=== PATIENT | male | born 1965 | race Caucasian/White ===

== ENCOUNTER → 2023-09-15 06:21 | Day surgery (SDC) | payer OTHER, SELFPAY | LOC: GI 06:21 | PROVIDERS: ATTENDING PHYSICIAN Internal Medicine Gastroenterology | DX: Z12.11 Encounter for screening for malignant neoplasm of colon (principal); K57.30 Diverticulosis of large intestine without perforation or abscess without bleeding; K64.8 Other hemorrhoids; Z86.010 Personal history of colon polyps | CPT/HCPCS: G0105 ==

== ENCOUNTER 2023-09-15 20:47 | Emergency (ER) | payer OTHER, SELFPAY ==
[2023-09-15 20:52] VITALS: BP 184/124; BMI 33.9
[2023-09-15 21:16] LABS: % Basophils 0.9 % (0-2); % Eosinophils 2.1 % (0-6); % Immature Granulocytes 0.2 % (0-0.5); % Lymphocytes 36.8 % (20.5-51.1); % Monocytes 11.2 % (1.7-9.3); % Neutrophils 48.8 % (42.2-75.2); Absolute Basophils 0.1 10^3/uL (0-0.2); Absolute Eosinophils 0.2 10^3/uL (0-0.7); Absolute Lymphocytes 3.4 10^3/uL (1.2-3.4); Absolute Neutrophils 4.6 10^3/uL (1.4-6.5); Hematocrit 41.3 % (39.0-52.0); Hemoglobin 15.3 g/dL (13.0-18.0); Mean Corpuscular Hgb 31.2 pg (27.0-31.0); Mean Corpuscular Volume 84.1 fL (80.0-94.0); Mean Platelet Volume 9.6 fL (7.4-10.4); Nucleated Red Blood Cells % 0 % (-); Platelet Count 243 10^3/uL (130-400); Red Blood Cell Count 4.91 10^6/uL (4.70-6.10); Red Cell Dist. Width 12.7 % (11.5-14.5); White Blood Cell Count 9.3 10^3/uL (4.8-10.8)
[2023-09-15 21:34] LABS: ALT (SGPT) 25 U/L (0-50); AST (SGOT) 28 U/L (17-59); Albumin 4.5 g/dl (3.5-5.0); Alkaline Phosphatase 71 U/L (38-126); Blood Urea Nitrogen 17 mg/dl (9-20); Calcium 9.6 mg/dl (8.4-10.2); Carbon Dioxide 26 mmol/L (22-30); Chloride 99 mmol/L (98-107); Estimated Creatinine Clearance 88 ml/min; Glucose 117 mg/dl (70-99); Potassium 3.7 mmol/L (3.5-5.1); Sodium 136 mmol/L (135-145); Total Bilirubin 2.1 mg/dl (0.2-1.3); Total Protein 7.9 g/dl (6.3-8.2); eGFR > 60.00
[2023-09-15 21:41] LABS: Troponin I < 0.012 ng/ml
--- NOTE | 2023-09-15 23:19 | ED.GENMED ---
History of Present Illness
<GERTRUDE Harris - Last Filed: 09/16/23 05:58>
General
Chief Complaint: Headache
Source: patient and family
Exam Limitations: none
Time Seen by Provider: 09/15/23 23:04
Travel History
Have you had any contact with someone who has COVID-19?: No
Do you have any symptoms of coronavirus? Fever > 100 degrees, chills, cough, shortness of breath, sore throat, loss of taste or smell, muscle aches, or headache?: No
History of Present Illness
History of Present Illness:
This is a 57 YO M with a PMH of HTN presenting here today for sharp head pain/pressure since 7:30 p.m. tonight. Pt reports the pain is sharp with radiation from the top left scalp down into the left forehead and left ear.
Denies eye pain, loss of vision, or visual changes. Pt reports this has never happened before. Pt had a colonoscopy today and reports it was normal. He mentioned he vomited last night after taking the medication for his colonoscopy. He rates the
head pressure as a 3-4/10. He states the pain has improved since being here. Denies chest pain, SOB, fever or chills, or new rashes.
Pt reports he was not vaccinated for shingles.
Past History
<GERTRUDE Harris - Last Filed: 09/16/23 05:58>
Past History
ED Past Medical History: HTN
ED Past Surgical History: Cardiac and Urological
Social History
Tobacco: Non-smoker
Personal:
Living: with family
Employment: Employed
Review of Systems
<GERTRUDE Harris - Last Filed: 09/16/23 05:58>
Review of Systems
Constitutional: Reports no symptoms
Respiratory: Reports no symptoms
Cardiac: Reports no symptoms
ABD/GI: Reports no symptoms
: Reports no symptoms
Musculoskeletal: Reports joint pain
Skin: Reports no symptoms
Neurological: Reports headache
Endocrine: Reports no symptoms
Hematologic/Lymphatic: Reports no symptoms
Psychiatric: Reports no symptoms
Phy Exam
<Maliha Wilkins [facility] - Last Filed: 09/16/23 05:58>
Physical Exam
Physical Exam:
Left scalp pain, radiating into left forehead
Normal S1 and S2, Pupils are equally R+R to light, Lungs clear to auscultation B/L
Pulmonary Exam
Pulmonary Exam: lungs clear, no respiratory distress, no rales, no crackles, no rhonchi, no wheezing and no cough
Psychiatric Exam
Psychiatric Exam: normal mood/affect
Course
<Maliha Wilkins [facility] - Last Filed: 09/16/23 05:58>
Orders/Labs/Results
Orders:
Orders
09/15/23 20:57
Electrocardiogram (*1) Urgent
Reason for Study: Chest Pain
CT Head W/o Iv Contrast Urgent
Comment:
Reason For Exam: pain
EKG- Treatment ONCE
09/15/23 21:11
Complete Blood Count/With Diff Urgent
Comprehensive Metabolic Panel Urgent
Troponin I Urgent
Abnormal Lab Results
09/15/23
21:11
MCH 31.2 H pg
(27.0-31.0)
Absolute Monos (auto) 1.0 H 10^3/uL
(0.1-0.6)
Monocytes % 11.2 H %
(1.7-9.3)
Glucose 117 H mg/dl
(70-99)
Total Bilirubin 2.1 H mg/dl
(0.2-1.3)
09/15/23 21:11
09/15/23 21:11
Vital Signs
Initial and Last Documented VS:
Initial Vital Signs
Temp Pulse Resp BP Pulse Ox
98.4 F 99 18 184/124 98
09/15/23 20:52 09/15/23 20:52 09/15/23 20:52 09/15/23 20:52 09/15/23 20:52
Last Documented Vital Signs
Temp Pulse Resp BP Pulse Ox
98.4 F 99 18 167/98 98
09/15/23 20:52 09/15/23 20:52 09/15/23 20:52 09/15/23 23:39 09/15/23 20:52
<Lizbeth Luis DO - Last Filed: 09/16/23 00:00>
Orders/Labs/Results
Orders:
Orders
09/15/23 20:57
Electrocardiogram (*1) Urgent
Reason for Study: Chest Pain
CT Head W/o Iv Contrast Urgent
Comment:
Reason For Exam: pain
EKG- Treatment ONCE
09/15/23 21:11
Complete Blood Count/With Diff Urgent
Comprehensive Metabolic Panel Urgent
Troponin I Urgent
Abnormal Lab Results
09/15/23
21:11
MCH 31.2 H pg
(27.0-31.0)
Absolute Monos (auto) 1.0 H 10^3/uL
(0.1-0.6)
Monocytes % 11.2 H %
(1.7-9.3)
Glucose 117 H mg/dl
(70-99)
Total Bilirubin 2.1 H mg/dl
(0.2-1.3)
09/15/23 21:11
09/15/23 21:11
Vital Signs
Initial and Last Documented VS:
Initial Vital Signs
Temp Pulse Resp BP Pulse Ox
98.4 F 99 18 184/124 98
09/15/23 20:52 09/15/23 20:52 09/15/23 20:52 09/15/23 20:52 09/15/23 20:52
Last Documented Vital Signs
Temp Pulse Resp BP Pulse Ox
98.4 F 99 18 167/98 98
09/15/23 20:52 09/15/23 20:52 09/15/23 20:52 09/15/23 23:39 09/15/23 20:52
<GERTRUDE Harris - Last Filed: 09/16/23 05:58>
MDM/Problems Addressed
Differential Diagnosis Includes:
Giant cell arteritis, Shingles, Migraine
MDM/Problems Addressed:
Scalp, left forehead pressure since x 6 hours
Chronic conditions affecting care: HTN
<GERTRUDE Harris - Last Filed: 09/16/23 05:58>
*Critical Care Note
Total Time (30-74mins, 75-104mins- exclusive of procedures): Not Applicable
<Lizbeth Luis DO - Last Filed: 09/16/23 00:00>
*Radiology
Radiology exam reviewed: radiology read reviewed
*Pulse Oximetry
Patient hypoxic: no
*EKG
Interpreted by ED Provider?: Yes
Comparison EKG: no changes
Rate: normal
Rhythm: sinus
[place]: normal axis
Interval: normal interval
QRS Pattern: normal QRS
Ischemia: non-specific ST changes
*[employer] Interpretation
Rate: normal
Interpretation: normal
Rhythm: sinus
ED Attending Note
<GERTRUDE Harris - Last Filed: 09/16/23 05:58>
-
Portions of this chart may have been created with voice recognition software.� Occasional wrong word or��sound alike� substitutions may have occurred due to the inherent limitations of voice recognition software.
<Lizbeth Luis, DO - Last Filed: 09/16/23 00:00>
ED Attending Note
Patient seen and examined by attending physician: Yes
I performed the substantive portion of visit, reviewed & personally made and approve the management plan that is documented in note by myself or RASHMI.: Yes
I performed a history and physical exam of patient and discussed management with resident, I reviewed resident's note and agree with documented findings and plan of care.: Yes
ED Attending Note:
This is a 57-year-old gentleman with history of hypertension, chronically maintained on lisinopril who underwent routine repeat screening colonoscopy this morning and admits to neglecting to take his lisinopril this morning. He does admit to
moderately rough evening last night as well as poor sleep last night related to colonoscopy prep.
Reports undergoing unremarkable colonoscopy showing diverticulosis but no polyps.
This evening he drank a THC containing seltzer and shortly after this developed abrupt onset of sharp, stabbing left frontotemporal head pain accompanied with tingling sensation left frontotemporal region that began around 7:30 PM. No associated
symptoms, he denies weakness nor numbness, no neck pain or chest pain, no palpitations, no dizziness nor lightheadedness, no nausea nor vomiting, no vision difficulty. Intermittent sharp stabbing left frontotemporal head discomfort persisted for
perhaps 2 hours but then resolved. He did not take anything for discomfort.
No history of similar episodes in the past.
GENERAL: Alert , in no apparent distress
EYE: pupils equal and reactive. Extraocular muscles intact. Anicteric
NECK: Supple, nontender, no meningismus, no significant adenopathy.
ENT: posterior pharynx is clear, oral mucosa is moist. TM clear b/l, nares patent.
CARDIAC: Regular rate and rhythm. no murmur.
LUNGS: Clear breath sounds bilaterally, no acute respiratory distress, no wheezes/rales/rhonchi
ABDOMEN: Soft, nondistended, without focal tenderness, no r/g, no cvat. normoactive BS.
NEUROLOGICAL: Alert and oriented x3, no focal neuro deficits. Gait is whitehead and steady.
SKIN: Warm and dry, normal color, skin intact. No rash.
MUSCULOSKELETAL: No C/C/E. peripheral pulses are full and equal b/l. No palpable tenderness.
PSYCH: Normal and appropriate interaction.
History and exam most suggestive of tension type headache, other consideration is migraine headache. With no other associated symptoms, acute intracranial event/CVA, ruptured aneurysm etc. are less likely.
With resolution of headache, temporal arteritis, early herpes zoster are unlikely as well.
Moderately elevated blood pressure initially 184/124 has improved to 160/90.
Headache has resolved since arrival to the ED without intervention.
CT of the head is unremarkable.
Labs are unremarkable as well.
Recommend he resume his regular dose of lisinopril on a daily basis.
Discussed importance of remaining well-hydrated on a daily basis.
Prompt follow-up with PCP for recheck.
Return precautions discussed.
Discharge Plan
Departure
Patient Disposition: Home (Routine Discharge)
Date of Disposition: 09/15/23
Time of Disposition: 23:44
Patient with high blood pressure during this ER visit?: No
Condition: Good
Discharge Problem:
Acute tension-type headache
Instructions: Headache, Adult (DC)
Prescriptions:
No Action
lisinopril 20 MG tablet
20 mg PO DAILY
[id number] [Daily Multivitamin] 1 EACH capsule
1 ea PO DAILY
Referrals:
UNKNOWN - PT DOES,NOT KNOW [Unknown Provider] -
Activity Restrictions/Additional Instructions:
Resume your daily antihypertensive/lisinopril.
Stay well-hydrated on a daily basis at least over the next several days.
If headache returns you may take Tylenol versus ibuprofen for headache. If this is ineffective or if headache persists, becomes severe or is accompanied with vomiting, fever, weakness or any other worrisome symptom, prompt return to the ER for
further evaluation.
Follow-up with your primary care physician for BP recheck.
Interventions
Interventions:
*Risk Screen - Suicide Last Done: 09/15/23 20:52
*General Assessment Last Done: 09/15/23 23:52
*Neglect/Abuse Screening Last Done: 09/15/23 20:52
ED- Fall Risk Assessment Last Done: 09/15/23 20:52
*ED COVID-19 Vaccine History Last Done: 09/15/23 23:52
*Nursing Disposition Last Done: 09/15/23 23:52
ED- Neurological Assessment Last Done: 09/15/23 23:35
Discharge Date and Time
Discharge Date/Time: 09/15/23 23:52
Print Language: UKRAINIAN
[2023-09-15 23:39] VITALS: BP 167/98
== END 2023-09-15 23:52 | disposition home or self-care (01) ==
LOC: EMR 20:47
PROVIDERS: Emergency Medicine; EMERGENCY PHYSICIAN Emergency Medicine; FAMILY PHYSICIAN Family Medicine
DX: G44.209 Tension-type headache, unspecified, not intractable (principal); R20.2 Paresthesia of skin; R11.10 Vomiting, unspecified; H92.02 Otalgia, left ear; K57.30 Diverticulosis of large intestine without perforation or abscess without bleeding; I10 Essential (primary) hypertension; Z79.899 Other long term (current) drug therapy; Z98.890 Other specified postprocedural states; Z88.5 Allergy status to narcotic agent
CPT/HCPCS: 99284; 70450; 80053; 84484; 85025; 93005

== ENCOUNTER → 2025-04-04 15:38 | Outpatient (REF) | payer OTHER, SELFPAY | LOC: RAD 15:38 | PROVIDERS: ATTENDING PHYSICIAN Family Medicine | DX: R06.02 Shortness of breath (principal); R07.9 Chest pain, unspecified; I10 Essential (primary) hypertension; E66.9 Obesity, unspecified | CPT/HCPCS: 71046 ==